=== PATIENT | male | born 1955 | race Caucasian/White ===

== ENCOUNTER → 2016-05-27 | Outpatient (REF) | payer OTHER | END | disposition home or self-care (01) | LOC: M LAB REF 13:11 | PROVIDERS: ATTEND Internal Medicine | DX: E78.00 Pure hypercholesterolemia, unspecified (principal); E78.1 Pure hyperglyceridemia ==

== ENCOUNTER → 2017-07-18 | Outpatient (REF) | payer OTHER ==
[2017-07-18 13:15] LABS: FREE T3 2.5 PG/ML (2.2-4.0)
== END ==
LOC: M LAB REF 11:59
DX: E03.9 Hypothyroidism, unspecified (principal)

== ENCOUNTER 2018-06-05 08:31 | Day surgery (SDC) | payer BC, OTHER ==
[~2018-06-05] VITALS: Ht 167.6 cm; Wt 112.5 kg
[~2018-06-05 08:31] MED LIST: ALBU83IN NEB; ATOR40TA75 PO; FURO40TA2 PO; LEVO200T4 PO; METF10004 PO; NS 1,000 ML IV ONE; PRAM1TAB7 PO; TRAD5TAB PO
[2018-06-05] MEDS ORDERED: PROPOFOL 200 MG/20 ML VIAL As Ordered ONE (10:54)
--- NOTE | 2018-06-05 11:21 | ROOR ---
Patient Name: Александр Mercer Procedure Date: 06/05/2018 10:49 AM Date of : 1955 Age: 62 Room: [facility] Gender: Male Note Status: Finalized Procedure: Colonoscopy Indications: High risk colon cancer surveillance: Personal history of non-advanced adenoma, Last colonoscopy: March 2010 Providers: Lenin Watson MD Referring MD: BRANDI MANDUJANO JR, MD Requesting Provider: Medicines: Monitored Anesthesia Care Complications: No immediate complications. Procedure: Pre-Anesthesia Assessment: - Prior to the procedure, a History and Physical was performed, and patient medications and allergies were reviewed. The patient is competent. The risks and benefits of the procedure and the sedation options and risks were discussed with the patient. All questions were answered and informed consent was obtained. Patient identification and proposed procedure were verified by the physician, the nurse and the anesthesiologist in the procedure room. Mental Status Examination: alert and oriented. CV Examination: regular rate and rhythm. Prophylactic Antibiotics: The patient does not require prophylactic antibiotics. Prior Anticoagulants: The patient has taken no previous anticoagulant or antiplatelet agents. ASA Grade Assessment: III - A patient with severe systemic disease. After reviewing the risks and benefits, the patient was deemed in satisfactory condition to undergo the procedure. The anesthesia plan was to use monitored anesthesia care (MAC). Immediately prior to administration of medications, the patient was re-assessed for adequacy to receive sedatives. The heart rate, respiratory rate, oxygen saturations, blood pressure, adequacy of pulmonary ventilation, and response to care were monitored throughout the procedure. The physical status of the patient was re-assessed after the procedure. The was introduced through the anus and advanced to the ileocecal valve. The colonoscopy was performed without difficulty. The patient tolerated the procedure well. The quality of the bowel preparation was excellent. Findings: Skin tags were found on perianal exam. Scattered small-mouthed diverticula were found in the sigmoid colon and descending colon. A 4 mm polyp was found at 80 cm proximal to the anus. The polyp was sessile. The polyp was removed with a cold snare. Resection and retrieval were complete. Estimated blood loss was minimal. Impression: - Perianal skin tags found on perianal exam. - Diverticulosis in the sigmoid colon and in the descending colon. - One 4 mm polyp at 80 cm proximal to the anus, removed with a cold snare. Resected and retrieved. Recommendation: - Await pathology results. - Discharge patient to home. - Resume previous diet. - Continue present medications. - If the pathology report reveals adenomatous tissue, then repeat the colonoscopy for surveillance in 3 - 5 years. Lenin Watson MD Lenin Watson MD 06/05/2018 11:21:36 AM This report has been signed electronically. Number of Addenda: 0 Note Initiated On: 06/05/2018 10:49 AM Estimated Blood Loss: Estimated blood loss was minimal.
[2018-06-05 11:35] VITALS: BP 144/84
== END 2018-06-05 12:10 | disposition home or self-care (01) ==
LOC: M OPP 08:31
PROVIDERS: ATTEND Surgery
DX: Z12.11 Encounter for screening for malignant neoplasm of colon (principal); Z86.010 Personal history of colon polyps; D12.4 Benign neoplasm of descending colon; K57.90 Diverticulosis of intestine, part unspecified, without perforation or abscess without bleeding; K64.4 Residual hemorrhoidal skin tags; E78.5 Hyperlipidemia, unspecified; R60.0 Localized edema; E03.9 Hypothyroidism, unspecified; E11.9 Type 2 diabetes mellitus without complications; J45.909 Unspecified asthma, uncomplicated; J44.9 Chronic obstructive pulmonary disease, unspecified; R06.83 Snoring; G47.30 Sleep apnea, unspecified; E66.9 Obesity, unspecified; N18.9 Chronic kidney disease, unspecified; G25.81 Restless legs syndrome; Z87.891 Personal history of nicotine dependence; Z88.8 Allergy status to other drugs, medicaments and biological substances; Z88.0 Allergy status to penicillin; Z79.899 Other long term (current) drug therapy; Z79.84 Long term (current) use of oral hypoglycemic drugs

== ENCOUNTER → 2018-11-12 | Outpatient (REF) | payer MEDICARE, OTHER ==
[~2018-11-12] MED LIST changes: -NS 1,000 ML IV ONE
== END ==
LOC: M LAB REF 16:49
PROVIDERS: ATTEND Internal Medicine
DX: R22.1 Localized swelling, mass and lump, neck (principal)

== ENCOUNTER → 2019-03-23 | Outpatient (CLI) | payer MEDICARE, OTHER ==
--- NOTE | 2019-03-23 11:45 | REP ---
Right rib series four views: There is no rib fracture or other rib abnormality. PA chest: There are no comparisons. There is no pneumothorax, hemothorax or pulmonary contusion. There is a parenchymal scar in the left costophrenic angle with slight tenting of the adjacent lateral pleura. Cardiac size is upper normal. The iker, mediastinum, skeletal structures are unremarkable. Impression: Essentially negative PA chest except for parenchymal scarring inferiorly in the left lung. Electronically Signed by Levi Ervin MD 03/23/2019 11:37 A
== END ==
LOC: M WUC 09:20
PROVIDERS: ATTEND Physician Assistant
DX: R07.1 Chest pain on breathing (principal)

== ENCOUNTER → 2019-04-27 | Outpatient (REF) | payer MEDICARE, BC, OTHER | LOC: M LAB REF 14:08 | PROVIDERS: ATTEND Physician Assistant | DX: R30.0 Dysuria (principal); M54.5 Low back pain ==

== ENCOUNTER 2019-05-15 07:22 | Emergency (ER) | payer MEDICARE, BC, OTHER ==
[~2019-05-15] VITALS: Ht 167.6 cm; Wt 118.2 kg
[2019-05-15] MEDS ORDERED: MELA5SUB SL (07:30)
[2019-05-15 08:32] LABS: BASO % 0.3 % (0.0-1.0); EOS % 0.2 % (0.0-3.0); HEMOGLOBIN 11.3 g/dl (13.5-17.5); LYMPH # 0.6 10^3/uL (1.5-5.0); LYMPH % 6.3 % (24.0-44.0); MEAN CORPUSCULAR HGB CONC 31.4 g/dl (32.0-36.5); MEAN CORPUSCULAR VOLUME 98.9 fl (80.0-96.0); MONO # 0.9 10^3/uL (0.0-0.8); MONO % 9.2 % (0.0-5.0); NEUTROPHILS # 8.2 10^3/uL (1.5-8.5); NEUTROPHILS % 83.6 % (36.0-66.0); PLATELET COUNT, AUTOMATED 108 10^3/uL (150-450); RED BLOOD COUNT 3.64 10^6/uL (4.30-6.10); WHITE BLOOD COUNT 9.8 10^3/uL (4.0-10.0)
[2019-05-15 08:51] LABS: BLOOD UREA NITROGEN 16 MG/DL (7-18); CALCIUM LEVEL 8.1 MG/DL (8.8-10.2); CARBON DIOXIDE LEVEL 22 MEQ/L (21-32); CHLORIDE LEVEL 106 MEQ/L (98-107); CREATININE FOR GFR 1.19 MG/DL (0.70-1.30); GLOMERULAR FILTRATION RATE > 60.0 (>49); GLUCOSE, FASTING 190 MG/DL (70-100); POTASSIUM SERUM 4.1 MEQ/L (3.5-5.1); SODIUM LEVEL 138 MEQ/L (136-145)
[2019-05-15] MEDS ORDERED: SULF1TAB93 PO (09:10)
[2019-05-15] MEDS ORDERED: PHENAZOPYRIDINE 100 MG TAB PO ONE (09:15)
[2019-05-15] MEDS ORDERED: BACTRIM 160MG/800MG DS TAB PO ONE (09:15)
[2019-05-15 09:23] VITALS: BP 168/75
[2019-05-16] MEDS ORDERED: PHEN-501 PO (14:46)
[2019-05-16] MEDS ORDERED: ACET-683 PO (14:52)
[2019-05-16] MEDS ORDERED: METF-723 PO (18:06)
[2019-05-16] MEDS ORDERED: MELA10CA PO (18:06)
[2019-05-16] MEDS ORDERED: BACT800T5 PO (18:06)
[2019-05-16] MEDS ORDERED: ALBU83IN INH (18:07)
== END 2019-05-15 09:24 | disposition home or self-care (01) ==
LOC: M ED 07:22
DX: N39.0 Urinary tract infection, site not specified (principal); D64.9 Anemia, unspecified; D69.6 Thrombocytopenia, unspecified; E11.9 Type 2 diabetes mellitus without complications; E03.9 Hypothyroidism, unspecified; G47.33 Obstructive sleep apnea (adult) (pediatric); Z79.899 Other long term (current) drug therapy; Z79.890 Hormone replacement therapy; Z79.84 Long term (current) use of oral hypoglycemic drugs; Z88.0 Allergy status to penicillin; Z88.8 Allergy status to other drugs, medicaments and biological substances

== ENCOUNTER 2019-05-16 14:37 | Inpatient (IN) | payer MEDICARE, BC, OTHER ==
[~2019-05-16] VITALS: Ht 162.6 cm; Wt 115.8 kg
[~2019-05-16 14:37] MED LIST changes: +MELA5SUB SL; +SULF1TAB93 PO
[2019-05-16] MEDS ORDERED: PHEN-501 PO (14:46)
[2019-05-16] MEDS ORDERED: ACET-683 PO (14:52)
[2019-05-16 15:34] LABS: BASO % 0.1 % (0.0-1.0); HEMOGLOBIN 10.8 g/dl (13.5-17.5); LYMPH # 0.4 10^3/uL (1.5-5.0); LYMPH % 4.5 % (24.0-44.0); MEAN CORPUSCULAR HEMOGLOBIN 32.5 pg (27.0-33.0); MEAN CORPUSCULAR HGB CONC 32.7 g/dl (32.0-36.5); MEAN CORPUSCULAR VOLUME 99.4 fl (80.0-96.0); MONO # 0.6 10^3/uL (0.0-0.8); MONO % 7.3 % (0.0-5.0); NEUTROPHILS # 7.6 10^3/uL (1.5-8.5); NEUTROPHILS % 87.5 % (36.0-66.0); PLATELET COUNT, AUTOMATED 104 10^3/uL (150-450); RED BLOOD COUNT 3.32 10^6/uL (4.30-6.10); WHITE BLOOD COUNT 8.7 10^3/uL (4.0-10.0)
[2019-05-16 15:50] LABS: ALBUMIN 3.2 GM/DL (3.2-5.2); BILIRUBIN,TOTAL 1.1 MG/DL (0.2-1.0); CALCIUM LEVEL 8.2 MG/DL (8.8-10.2); CREATININE FOR GFR 1.77 MG/DL (0.70-1.30); GLOMERULAR FILTRATION RATE 41.3 (>49); POTASSIUM SERUM 3.9 MEQ/L (3.5-5.1); TOTAL PROTEIN 6.9 GM/DL (6.4-8.2)
[2019-05-16] MEDS ORDERED: cefTRIAXone SOD 1 GM in D5W MINI-BAG PLUS 50 ML IV ONE (16:00)
[2019-05-16] MEDS ORDERED: IBUPROFEN 800 MG TAB PO ONE (16:00)
[2019-05-16] MEDS ORDERED: NS 1,000 ML IV ONE (16:00)
--- NOTE | 2019-05-16 16:17 | REP ---
Clinical: Left flank pain. Technique: Axial noncontrast images from the lung bases to the pubic symphysis with coronal and sagittal re-formations. Findings: Moderate acute left-sided obstructive uropathy with hydroureteronephrosis, perinephric and periureteral stranding and small amount of perinephric fluid secondary to a 7 mm calculus obstructing the mid/distal ureter (image 110 - 111). Multiple intrarenal calculi are also identified measuring up to 9 mm along with presumed renal cysts. The right kidney demonstrates mild perinephric stranding which may be chronic and hypodensity suggesting cyst without hydronephrosis or nephrolithiasis. Bladder is under distended. Liver, spleen, pancreas, and bilateral adrenal glands are normal. Evidence of prior cholecystectomy. The enteric system is without obstruction or acute inflammatory process. Pelvis demonstrates under distended bladder and mild prostatomegaly. No ascites. No free air. No significant adenopathy. Musculoskeletal structures demonstrate degenerative changes. Lung bases demonstrate minimal left basilar atelectasis. Impression: 1. Moderate acute left-sided obstructive uropathy with a 7 mm obstructing calculus in the mid/distal ureter. Left kidney also demonstrates multiple cysts and intrarenal calculi up to 9 mm. 2. Right kidney is relatively normal. 3. Mild prostatomegaly. 4. Left basilar atelectasis. Electronically Signed by Medardo Feng MD 05/16/2019 04:09 P
--- NOTE | 2019-05-16 16:18 | REP ---
Single view chest: 05/16/2019. Indication: Dyspnea. Comparison: 01/16/2007. Findings: Poor inspiratory result is noted. The cardiac silhouette is borderline enlarged. Left lower lobe discoid atelectasis is present. There is no evidence of pleural effusion or pneumothorax. Impression: No evidence of acute cardiopulmonary process. Electronically Signed by Jarocho Collazo DO 05/16/2019 04:09 P
[2019-05-16] MEDS ORDERED: CONRAY-60 60% 50ML VIAL (Q9961) As Ordered ONE (17:59)
[2019-05-16] MEDS ORDERED: HumaLOG INSULIN (NovoLOG) PER UNIT SC SCH (18:00)
[2019-05-16] MEDS ORDERED: MELA10CA PO (18:06)
[2019-05-16] MEDS ORDERED: METF-723 PO (18:06)
[2019-05-16] MEDS ORDERED: BACT800T5 PO (18:06)
[2019-05-16] MEDS ORDERED: ALBU83IN INH (18:07)
[2019-05-16] MEDS ORDERED: ONDANSETRON 4MG/2ML VIAL (J2405) IV PRN ×2 (18:15→21:30)
[2019-05-16] MEDS ORDERED: MORPHINE 4 MG/ML 1ML VIAL/SYRINGE (J2270) IV PRN (18:15)
--- NOTE | 2019-05-16 18:52 | HPEPDOC ---
[facility] Medical History & Physical Date of Admission May 16, 2019 Date of Service: May 16, 2019 Attending Physician: ALEXY WHALEY MD History and Physical CHIEF COMPLAINT: Fever, chills, back pain HISTORY OF PRESENT ILLNESS: Patient is a 63 year old male who presented to the [facility] ER with complaint of fevers, chills, back pain and lower abdominal pain. He stated that he developed back pain and urinary urgency about 1 week ago. He stated that at the time he did not think much of it as he has a history of kidney stones. As the week progressed he was having increasing urinary urgency as well as increased back pain and abdominal pain. He stated that yesterday he had developed chills and fevers. He stated that he presented to the [facility] ER yesterday where he was diagnosed with a urinary tract infection and sent home with Bactrim. The patient stated that since yesterday his fever and chills has worsened and his back pain and abdominal pain have worsened as well. He currently denies any urinary retention. He does admit to discomfort on urination. He denies any hematuria. He denies any penile discharge. In the ER the patient was found to be febrile with a temperature of 102.0. He was normotensive however throughout his time in the ER he became slightly hypotensive. He has received Normal saline boluses x2. He received a chest x-ray which was negative for any acute cardiopulmonary process. He received an abdominal pelvis CT which demonstrated moderate acute left-sided obstructive uropathy with a 7mm obstructing calculus in the mid/distal ureter. Additionally, the left kidney demonstrated multiple cysts and intrarenal calculi up to 9mm. The patient was seen by Urology with recommendations for surgical stent placement tonight. Hospitalist service was consulted for medical management of the patients pyelonephritis PAST MEDICAL HISTORY: 1. Asthma/COPD 2. Obstructive Sleep Apnea 3. Diabetes Mellitus Type 2 non-insulin dependent 4. Restless leg syndrome 5. Nephrolithiasis 6. Chronic Leg edema 7. Osteoarthritis of Knees 8. Hypothyroidism PAST SURGICAL HISTORY: 1. Bilateral Knee Arthroscopy 2. Right Calve Vein Stripping 3. Cholecystectomy 4. Left foot reconstructive surgery SOCIAL HISTORY: Patient is currently living at home with his . He is a former smoker. He started smoking at the age of 12. He quit smoking November 23 2006. He drinks whiskey about 1 drink per night. He denies any IV or illicit drug use FAMILY HISTORY:His mother and father are . His mother from complications of cigarette smoking. His father had CAD. He has one brother and 6 sisters who are all alive and well. ALLERGIES: Please see below. REVIEW OF SYSTEMS: CONSTITUTIONAL: Admits to fevers, chills. Denies unintentional weight loss or weight gain. Denies night sweats HEENT: Denies cough. Denies dysphagia. Denies sore throat CARDIOVASCULAR: Denies chest pain, pressure. Denies palpitations or feelings of the heart racing RESPIRATORY: Admits to occasional shortness of breath. Denies sputum production. Denies cough. Denies wheezing GASTROINTESTINAL: Admits to lower abdominal pain. Denies nausea or vomiting. Denies diarrhea or constipation GENITOURINARY: Admits to urinary urgency and frequency. Denies urinary retention. Admits to dark urine. Denies hematuria. Admits to left sided flank pain SKIN: Denies rashes or lesions MUSCULOSKELETAL: Admits to left sided flank pain. Denies muscle weaknes NEUROLOGICAL: Denies changes in gait or speech. Denies changes in balance PSYCHIATRIC: Denies history of anxiety or depression ENDOCRINE: Denies heat intolerance or cold intolerance. Admits to diabetes HEMATOLOGIC/LYMPHATIC: Denies easy bruising or bleeding. Denies history of DVT or PE HOME MEDICATIONS: Please see below. PHYSICAL EXAMINATION: VITAL SIGNS: Temperature 101.7, pulse 74, respiratory rate 22, blood pressure 101/58, pulse oximetry 95% on room air. GENERAL APPEARANCE: Patient is awake, alert, and oriented. He does not appear to be in any acute distress. He is lying comfortably in stretcher HEENT: Atraumatic, normocephalic. Eyes are nonicteric. trachea is midline. Upper and lower dentures in place. Mallampati III-IV. Mucous membranes are pink and moist. Bilateral hearing aid device CARDIOVASCULAR: Normal S1, S2. Regular rate and rhythm. No clicks rubs or murmurs LUNGS: Clear vesicular breath sounds bilaterally with good respiratory effort. No wheezes, rhonchi or rales. Prolonged expiratory phase. Symmetric chest expansion ABDOMEN: Obese, soft, nondistended. Slight suprapubic tenderness. no rebound tenderness or guarding. Normoactive bowel sounds throughout MUSCULOSKELETAL: Tenderness of left flank. EXTREMITIES: 1-2 plus pitting edema in bilateral lower extremities. Full and equal pulses in bilateral upper and lower extremities NEUROLOGICAL: No focal neurological deficits PSYCHIATRIC: Mood and affect appear appropriate LABORATORY DATA: See below. IMAGING: Single view chest: 05/16/2019. Indication: Dyspnea. Comparison: 01/16/2007. Findings: Poor inspiratory result is noted. The cardiac silhouette is borderline enlarged. Left lower lobe discoid atelectasis is present. There is no evidence of pleural effusion or pneumothorax. Impression: No evidence of acute cardiopulmonary process. Electronically Signed by Jarocho Collazo DO 05/16/2019 04:09 P Clinical: Left flank pain. Technique: Axial noncontrast images from the lung bases to the pubic symphysis with coronal and sagittal re-formations. Findings: Moderate acute left-sided obstructive uropathy with hydroureteronephrosis, perinephric and periureteral stranding and small amount of perinephric fluid secondary to a 7 mm calculus obstructing the mid/distal ureter (image 110 - 111). Multiple intrarenal calculi are also identified measuring up to 9 mm along with presumed renal cysts. The right kidney demonstrates mild perinephric stranding which may be chronic and hypodensity suggesting cyst without hydronephrosis or nephrolithiasis. Bladder is under distended. Liver, spleen, pancreas, and bilateral adrenal glands are normal. Evidence of prior cholecystectomy. The enteric system is without obstruction or acute inflammatory process. Pelvis demonstrates under distended bladder and mild prostatomegaly. No ascites. No free air. No significant adenopathy. Musculoskeletal structures demonstrate degenerative changes. Lung bases demonstrate minimal left basilar atelectasis. Impression: 1. Moderate acute left-sided obstructive uropathy with a 7 mm obstructing calculus in the mid/distal ureter. Left kidney also demonstrates multiple cysts and intrarenal calculi up to 9 mm. 2. Right kidney is relatively normal. 3. Mild prostatomegaly. 4. Left basilar atelectasis. Electronically Signed by Medardo Feng MD 05/16/2019 04:09 P MICROBIOLOGY: Please see below. ASSESSMENT: Patient is a 63 year old male who presented to the [facility] ER with complaint of urinary urgency, abdominal pain, fevers and chills and found to have pyelonephritis with an obstructing left renal stone . PLAN: 1. Obstructive Uropathy secondary to Renal Calculus -Patient has a 7mm obstructing stone in the left ureter. He has been evaluated by Urology. He is planned to be taken to the OR today for stent placement -Patient will be kept NPO for his procedure -IV fluid hydration -IV morphine for pain control -Zofran for nausea 2. Left sided Pyelonephritis secondary to obstructive uropathy -Patient was on bactrim POP as an outpatient. Will place on Rocephin IV 1gm q24h. -Will monitor Cr. Will likely improve with removal of stone/stenting 3. Acute Kidney Injury 2/2 obstructive nephropathy -Will hold all nephrotoxic medications -IV fluid hydration -Patient will have stenting today. This will likely resolve the DION -Will monitor Cr for improvement 4. Lactic Acidosis -Likely secondary to acute infection and obstructive nephropathy -Patient has received IVF boluses and antibiotics. 5. Bilateral Leg edema -Patient states he has chronic edema. He denies history of CHF. -Lasix is currently on hold due to DION and obstructive uropathy 6. Diabetes Mellitus Type 2 -Holding home diabetes medications. Patient is NPO and is on fingersticks q6h. Sliding scale coverage 7. Restless Leg syndrome -Patient currently takes pramipexole and Rozerem. -Currently holding as patient is NPO. 8. Hypothyroidism -Patient is NPO. Levothyroxine on hold. Will continue tomorrow. 9. DVT prophylaxis -TEDS and sequentials as patient is going to surgery for stent placement -Will start pharmacological DVT prophylaxis tomorrow Vital Signs Vital Signs Date Time Temp Pulse Resp B/P (MAP) Pulse Ox O2 Delivery O2 Flow Rate FiO2 05/16/19 17:45 69 95 05/16/19 17:15 101/58 (72) 05/16/19 16:33 101.7 05/16/19 14:37 22 Room Air Laboratory Data Labs 24H Laboratory Tests 2 05/16/19 15:08: Immature Granulocyte % (Auto) 0.6, Neutrophils (%) (Auto) 87.5H, Lymphocytes (%) (Auto) 4.5L, Monocytes (%) (Auto) 7.3H, Eosinophils (%) (Auto) 0.0, Basophils (%) (Auto) 0.1, Neutrophils # (Auto) 7.6, Lymphocytes # (Auto) 0.4L, Monocytes # (Auto) 0.6, Eosinophils # (Auto) 0.0, Basophils # (Auto) 0.0, Nucleated Red Blood Cells % (auto) 0.2H, Anion Gap 10, Glomerular Filtration Rate 41.3L, Lactic Acid Level 3.0*H, Calcium Level 8.2L, Total Bilirubin 1.1H, Aspartate Amino Transf (AST/SGOT) 13, Alanine Aminotransferase (ALT/SGPT) 17, Alkaline Phosphatase 84, Total Protein 6.9, Albumin 3.2, Albumin/Globulin Ratio 0.86L 05/16/19 15:24: Urine Color DK YELLOW, Urine Appearance CLOUDYH, Urine pH 5.0, Urine Specific [place] 1.019, Urine Protein 2+H, Urine Glucose (UA) NEGATIVE, Urine Ketones NEGATIVE, Urine Blood 3+H, Urine Nitrite NEGATIVE, Urine Bilirubin NEGATIVE, Urine Urobilinogen 2.0H, Urine Leukocyte Esterase 1+H, Urine WBC (Auto) 66H, Urine RBC (Auto) 167H, Urine Hyaline Casts (Auto) 0, Urine Bacteria (Auto) 1+H, Urine Squamous Epithelial Cells 1, Urine Amorphous Sediment SMALLH, Urine Mucus (Auto) SMALL, Urine Sperm (Auto) CBC/BMP Laboratory Tests 05/16/19 15:08 Microbiology Microbiology 05/16/19 Blood Culture, Received Pending 05/16/19 Urine Culture, Received Pending 05/16/19 Blood Culture, Received Pending Home Medications Scheduled Furosemide (Furosemide) 40 Mg Tab, 40 MG PO DAILY Levothyroxine Sodium (Levothyroxine Sodium) 200 Mcg Tab, 200 MCG PO QAM Linagliptin (Tradjenta) 5 Mg Tab, 5 MG PO QHS Melatonin (Melatonin) 10 Mg Capsule, 20 MG PO QHS Metformin HCl (Metformin HCl ER) 500 Mg Tab.er.24h, 1,000 MG PO QHS Phenazopyridine HCl (Phenazopyridine HCl) 200 Mg Tablet, 200 MG PO TID Pramipexole Di-HCl (Pramipexole Dihydrochloride) 1 Mg Tab, 2 MG PO QHS Sulfamethoxazole/Trimethoprim (Bactrim Ds Tablet) 1 Each Tablet, 1 TAB PO BID FOR 7 DAYS, FILLED 05/15/19 Scheduled PRN Acetaminophen (Acetaminophen) 500 Mg Tablet, 500 MG PO Q6H PRN for PAIN Albuterol Sulf (Albuterol Sulfate) 2.5 Mg/3 Ml Vial.neb, 2.5 MG INH Q4H PRN for SHORTNESS OF BREATH Allergies Coded Allergies: Penicillins (Verified Allergy, Unknown, UNKNOWN CHILDHOOD REACTION, 05/16/19) diphenhydramine (Verified Allergy, Unknown, ANAPHYLAXIS, 05/16/19) A-FIB/CHADSVASC A-FIB History Current/History of A-Fib/PAF?: No MIMI PALMER DO May 16, 2019 18:52
[2019-05-16] MEDS ORDERED: IPRATROPIUM 0.5MG/ALBUTEROL 2.5MG INH SOL UD 3ML (DUONEB)(J7620) NEB PRN (19:00)
--- NOTE | 2019-05-16 19:58 | SMCUROLCON ---
Urology Consultation General Date of Consultation 05/16/19 Reason For Consultation This patient is seen for Pyelonephritis. History of Present Illness This is a 63 y/o M w/ a PMH significant for COPD, ROBERT, DM2, kidney stones, an elevated PSA (s/p negative prostate biopsy about 10 years ago), and hypothyroidi sm, presenting to the ER w/ fevers, b/l flank pain, and malaise. He originally came to the ER yesterday and was diagnosed w/ a UTI. He was sent home on abx and despite abx, his symptoms worsened. On CT he was found to have moderate left hydroureteronephrosis and perinephric stranding due to a 7mm obstructing mid left ureteral stone. His Tmax in the ER was 104 and he was noted to be mildly hypotensive w/ systolics in the 90s. His Cr was 1.8 from 1.2 yesterday. He notes that he feels a little better since receiving rocephin and IVF in the ER but he still feels pretty bad. Past Medical History Medical History see HPI Surgical Hstory right leg vein stripping, cholecystectomy, b/l knee surgery Medications Current Medications Current Medications Medications (Trade) Dose Ordered Sig/Delfin Route PRN Reason Start Time Stop Time Status Last Admin Dose Admin Albuterol/ Ipratropium (Duoneb (Ipr 0.5mg/Alb 2.5mg)) 3 ml Q4HP PRN NEB SOB/WHEEZING 05/16/19 19:00 Ceftriaxone Sodium 1 gm/ Dextrose 50 ml @ 100 mls/hr Q24H IV 05/17/19 16:00 Home Med (Med Rec Complete!) ASDIRECTED XX 05/16/19 18:15 05/16/19 18:15 DC Insulin Human Lispro (HumaLOG INSULIN) SEE PROTOCOL TABLE Q6H SC 05/16/19 18:00 Morphine Sulfate (Morphine Sulfate Inj) 3 mg Q3HP PRN IV SEVERE PAIN (PS 8-10) 05/16/19 18:15 Ondansetron HCl (ZOFRAN INJection) 4 mg Q6HP PRN IV NAUSEA OR VOMITING 05/16/19 18:15 Sodium Chloride 1,000 ml @ 150 mls/hr Q6H40M IV 05/16/19 18:15 Allergies Allergies: Coded Allergies: Penicillins (Verified Allergy, Unknown, UNKNOWN CHILDHOOD REACTION, 05/16/19) diphenhydramine (Verified Allergy, Unknown, ANAPHYLAXIS, 05/16/19) Review of Systems General: Reports: Chills Constitutional: Reports: Fever Pulmonary: Denies: Dyspnea, Cough Cardiovascular: Denies Chest Pain, Denies Palpitations Gastrointestinal: Reports: Abdominal Pain Genitourinary: Reports: Frequency; Denies: Dysuria, Retention, Other Symptoms Musculoskeletal: Reports: Back Pain (b/l flank pain) Psych: Reports: Mood Normal Physical Examination General Exam: Alert, Cooperative, No Acute Distress Chest Exam: Normal air movement Heart Exam: Rate Normal Abdomen Exam: Soft, Tenderness (mild LLQ) Skin Exam: Nl turgor and temperature Neuro Exam: Normal Speech Psych Exam: Mental status NL, Mood NL Vital Signs/I&O Vital Signs Date Time Temp Pulse Resp B/P (MAP) Pulse Ox O2 Delivery O2 Flow Rate FiO2 05/16/19 18:30 66 95 05/16/19 17:15 101/58 (72) 05/16/19 16:33 101.7 05/16/19 14:37 22 Room Air Laboratory Data 24H Labs Laboratory Tests 2 05/16/19 15:08: Immature Granulocyte % (Auto) 0.6, Neutrophils (%) (Auto) 87.5H, Lymphocytes (%) (Auto) 4.5L, Monocytes (%) (Auto) 7.3H, Eosinophils (%) (Auto) 0.0, Basophils (%) (Auto) 0.1, Neutrophils # (Auto) 7.6, Lymphocytes # (Auto) 0.4L, Monocytes # (Auto) 0.6, Eosinophils # (Auto) 0.0, Basophils # (Auto) 0.0, Nucleated Red Blood Cells % (auto) 0.2H, Anion Gap 10, Glomerular Filtration Rate 41.3L, Lactic Acid Level 3.0*H, Calcium Level 8.2L, Total Bilirubin 1.1H, Aspartate Amino Transf (AST/SGOT) 13, Alanine Aminotransferase (ALT/SGPT) 17, Alkaline Phosphatase 84, Total Protein 6.9, Albumin 3.2, Albumin/Globulin Ratio 0.86L 05/16/19 15:24: Urine Color DK YELLOW, Urine Appearance CLOUDYH, Urine pH 5.0, Urine Specific [place] 1.019, Urine Protein 2+H, Urine Glucose (UA) NEGATIVE, Urine Ketones NEGATIVE, Urine Blood 3+H, Urine Nitrite NEGATIVE, Urine Bilirubin NEGATIVE, Urine Urobilinogen 2.0H, Urine Leukocyte Esterase 1+H, Urine WBC (Auto) 66H, Urine RBC (Auto) 167H, Urine Hyaline Casts (Auto) 0, Urine Bacteria (Auto) 1+H, Urine Squamous Epithelial Cells 1, Urine Amorphous Sediment SMALLH, Urine Mucus (Auto) SMALL, Urine Sperm (Auto) CBC/BMP Laboratory Tests 05/16/19 15:08 Microbiology Microbiology 05/16/19 Blood Culture, Received Pending 05/16/19 Urine Culture, Received Pending 05/16/19 Blood Culture, Received Pending Assessment This is a 63 y/o M w/ an obstructing 7mm left ureteral stone and left pyelonephritis vs sepsis due to a UTI. I recommend that we take him to the OR this evening for cystoscopy and left ureteral stent placement. Plan - blood and urine cultures obtained in the ED - shaniqua given - informed consent signed for cystoscopy and left ureteral stent placement - NPO until after surgery MELIDA SNELL MD May 16, 2019 19:57
[2019-05-16 20:00] VITALS: BP 132/73
[2019-05-16] MEDS ORDERED: LIDOCAINE 2% 5ML JELLY UROJET As Ordered ONE (20:36)
[2019-05-16] MEDS ORDERED: ONDANSETRON 4MG/2ML VIAL (J2405) As Ordered ONE (20:49)
[2019-05-16] MEDS ORDERED: fentaNYL 100 MCG/2 ML INJECTION (J3010) As Ordered ONE (20:49)
[2019-05-16] MEDS ORDERED: LIDOCAINE 2% INJ 100 MG/5 ML SDV (FOR ANES.) As Ordered ONE (20:49)
[2019-05-16] MEDS ORDERED: MIDAZOLAM INJ 2 MG/2 ML VIAL (J2250) As Ordered ONE (20:49)
[2019-05-16] MEDS ORDERED: PROPOFOL 200 MG/20 ML VIAL As Ordered ONE (20:49)
[2019-05-16] MEDS ORDERED: fentaNYL 100 MCG/2 ML INJECTION (J3010) IV PRN (21:30)
[2019-05-16] MEDS ORDERED: PERCOCET 5MG/325MG TAB PO PRN (21:30)
[2019-05-16] MEDS ORDERED: LR 1,000 ML IV SCH (21:30)
--- NOTE | 2019-05-16 21:39 | RO ---
DATE OF PROCEDURE: 05/16/2019 PREPROCEDURE DIAGNOSIS: Left ureteral stone. POSTPROCEDURE DIAGNOSIS: Left ureteral stone. PROCEDURE: Cystoscopy, left retrograde pyelogram with intraoperative interpretation of images, left ureteral stent placement. SURGEON: Dr. Adán Maldonado INTERACTIVE MEDIA SPECIALIST: None. ANESTHESIA: Monitored anesthesia care (MAC). OPERATIVE INDICATIONS: This is a 63-year-old male who presented with an obstructing left ureteral stone, a urinary tract infection (UTI), and symptoms concerning for either left pyelonephritis or sepsis. He was brought to the operating room today for cystoscopy and left ureteral stent placement. DESCRIPTION OF PROCEDURE: The patient was brought to the operating room and MAC anesthesia administered. Broad-spectrum antibiotics had already been administered in the emergency room. He was then placed in the dorsal lithotomy position and prepped and draped in the usual sterile fashion. A rigid cystoscope was inserted into the urethral meatus and advanced into the bladder. Once inside the bladder, a guidewire was advanced up the left collecting system. Once the wire was advanced up, a 5-Malaysian open-ended ureteral catheter was advanced up the left collecting system. The wire was removed, and then I used the open-ended ureteral catheter to aspirate urine from the left kidney. Of note, the urine did not appear to be very purulent. A retrograde pyelogram was then performed, notable for moderate left hydronephrosis, no extravasation. I then advanced a wire back up the left collecting system and removed the ureteral catheter. I then utilized the wire to advance a 7-Malaysian x 22-32 cm JJ ureteral stent up into the left collecting system. The wire was removed, and there were adequate curls of the stent in the left renal pelvis and in the bladder. At this point, a 16-Malaysian Cantor catheter was inserted into the bladder, and the balloon was filled with 10 mL of sterile water. The catheter was connected to gravity drainage, and this marked the conclusion of the procedure. The patient was then taken out of the dorsal lithotomy position, awakened from anesthesia and transported to the recovery room in stable condition. Estimated blood loss: 0 mL. Complications: None. Specimens: Urine from left kidney for culture. PLAN: The patient will be kept in the hospital on broad-spectrum antibiotics until his cultures return. His catheter can likely be removed tomorrow. He will ultimately be brought back to the operating room at some point once his infection has cleared to treat his ureteral stone. PATRICIA
[2019-05-16 22:15] VITALS: BP 122/70
[2019-05-16] MEDS: NS 1,000 ML IV SCH (22:18)
[2019-05-16] MEDS ORDERED: GLUCAGON FOR INJ 1 MG VIAL (J1610) SC PRN (23:00)
[2019-05-16] MEDS ORDERED: DEXTROSE 50% 50 ML SYRINGE IV PRN (23:00)
[2019-05-16] MEDS ORDERED: GLUCOSE 4 GM CHEW TABLET PO PRN (23:00)
[2019-05-16 23:59] VITALS: BP 118/64
[2019-05-17] MEDS: ACETAMINOPHEN TAB 650MG DOSE (2X325MG) PO PRN ×2 (00:20→10:45)
[2019-05-17 01:00] VITALS: BP 120/63
[2019-05-17 04:00] VITALS: BP 123/71
[2019-05-17] MEDS: NS 1,000 ML IV SCH ×2 (04:49→10:45)
[2019-05-17 06:02] LABS: HEMATOCRIT 27.9 % (42.0-52.0); MEAN CORPUSCULAR HEMOGLOBIN 31.6 pg (27.0-33.0); MEAN CORPUSCULAR HGB CONC 31.2 g/dl (32.0-36.5); MEAN CORPUSCULAR VOLUME 101.5 fl (80.0-96.0); RED BLOOD COUNT 2.75 10^6/uL (4.30-6.10); WHITE BLOOD COUNT 5.4 10^3/uL (4.0-10.0)
[2019-05-17 06:11] LABS: HEMOGLOBIN 8.7 g/dl (13.5-17.5); PLATELET COUNT, AUTOMATED 95 10^3/uL (150-450)
[2019-05-17 06:13] LABS: CALCIUM LEVEL 7.7 MG/DL (8.8-10.2); CREATININE FOR GFR 1.35 MG/DL (0.70-1.30); GLOMERULAR FILTRATION RATE 56.5 (>49); POTASSIUM SERUM 3.7 MEQ/L (3.5-5.1)
--- NOTE | 2019-05-17 07:43 | IPNPDOC ---
Subjective Review oF Systems Chief Complaint The patient is a 63-year-old male admitted with a reason for visit of Pyelonephritis. Events since Last Encounter No acute events o/n. Patient notes that he feels much better this morning. He has no flank pain. No n/v. No f/c/ns. Objective Physical Examination General Exam: Alert, Cooperative, No Acute Distress ABDOMEN EXAM: Soft; No: Tenderness Skin Exam: Nl turgor and temperature Neuro Exam: Normal Speech Psych Exam: Mental status NL, Mood NL Other physical findings no CVAT; catheter draining clear urine Vital Signs/I&O Vital Signs Date Time Temp Pulse Resp B/P (MAP) Pulse Ox O2 Delivery O2 Flow Rate FiO2 05/17/19 04:00 97.9 62 16 123/71 (88) 98 Room Air 05/16/19 21:57 2 I&O- Last 24 Hours up to 6 AM 05/17/19 06:00 Intake Total 3592 ml Output Total 450 ml Balance 3142 ml Laboratory Data Labs 24H Laboratory Tests 2 05/16/19 15:08: Immature Granulocyte % (Auto) 0.6, Neutrophils (%) (Auto) 87.5H, Lymphocytes (%) (Auto) 4.5L, Monocytes (%) (Auto) 7.3H, Eosinophils (%) (Auto) 0.0, Basophils (%) (Auto) 0.1, Neutrophils # (Auto) 7.6, Lymphocytes # (Auto) 0.4L, Monocytes # (Auto) 0.6, Eosinophils # (Auto) 0.0, Basophils # (Auto) 0.0, Nucleated Red Blood Cells % (auto) 0.2H, Anion Gap 10, Glomerular Filtration Rate 41.3L, Lactic Acid Level 3.0*H, Calcium Level 8.2L, Total Bilirubin 1.1H, Aspartate Amino Transf (AST/SGOT) 13, Alanine Aminotransferase (ALT/SGPT) 17, Alkaline Phosphatase 84, Total Protein 6.9, Albumin 3.2, Albumin/Globulin Ratio 0.86L 05/16/19 15:24: Urine Color DK YELLOW, Urine Appearance CLOUDYH, Urine pH 5.0, Urine Specific [place] 1.019, Urine Protein 2+H, Urine Glucose (UA) NEGATIVE, Urine Ketones NEGATIVE, Urine Blood 3+H, Urine Nitrite NEGATIVE, Urine Bilirubin NEGATIVE, Urine Urobilinogen 2.0H, Urine Leukocyte Esterase 1+H, Urine WBC (Auto) 66H, Urine RBC (Auto) 167H, Urine Hyaline Casts (Auto) 0, Urine Bacteria (Auto) 1+H, Urine Squamous Epithelial Cells 1, Urine Amorphous Sediment SMALLH, Urine Mucus (Auto) SMALL, Urine Sperm (Auto) 05/16/19 22:14: Bedside Glucose (Misc Panel) 150H 05/16/19 22:20: Lactic Acid Followup at 4 Hours 1.5 05/17/19 05:41: Nucleated Red Blood Cells % (auto) 0.0, Immature Platelet Fraction 1.2, Anion Gap 8, Glomerular Filtration Rate 56.5, Calcium Level 7.7L CBC/BMP Laboratory Tests 05/16/19 15:08 05/17/19 05:41 FSBS Laboratory Tests Test 05/16/19 22:14 Range/Units Bedside Glucose (Misc Panel) 150 80-115 MG/DL Microbiology Microbiology 05/16/19 Urine Culture, Received Pending 05/16/19 Blood Culture, Received Pending 05/16/19 Urine Culture, Received Pending 05/16/19 Blood Culture, Received Pending Assessment/Plan Date Seen The patient was seen on 05/17/19. Patient Summary This is a 63 y/o M w/ an obstructing 7mm left ureteral stone and left deandre lonephritis vs sepsis due to a UTI, POD1 s/p cysto w/ left ureteral stent placement. He feels much better this am. He is afebrile. His Cr is trending down, now 1.4 from 1.8 yesterday. Plan/VTE VTE Prophylaxis Ordered?: Yes VTE Exclusion Mechanical Proph: N/A:VTE Prophy Ordered Plan/Urinary Catheter Urinary Catheter: D/C Cantor Plan - d/c Cantor - cont broad spectrum abx - f/u culture results - patient will need f/u outpatient once he recovers from this to arrange surgery to remove his stone - will have my office schedule this MELIDA SNELL MD May 17, 2019 07:43
[2019-05-17 08:00] VITALS: BP 134/66
[2019-05-17] MEDS: HumaLOG INSULIN (NovoLOG) PER UNIT SC SCH ×2 (08:18→13:00)
--- NOTE | 2019-05-17 08:48 | REP ---
Retrograde pyelogram: Two views. History: Left stent placement. 29 seconds of fluoroscopy time is reported. Findings: A sequence of two last image hold fluoroscopically obtained spot radiographs of the abdomen document left ureteral cannulation, contrast injection, and stent placement. Electronically Signed by Micah Lowe MD 05/17/2019 09:00 A
[2019-05-17] MEDS ORDERED: CEFDINIR 300 MG CAP (OMNICEF) PO SCH (09:00)
[2019-05-17] MEDS ORDERED: CEFD300CAP PO (09:43)
[2019-05-17 12:00] VITALS: BP 117/59
[2019-05-17 12:48] LABS: BLOOD UREA NITROGEN 17 MG/DL (7-18); CALCIUM LEVEL 7.4 MG/DL (8.8-10.2); CARBON DIOXIDE LEVEL 25 MEQ/L (21-32); CHLORIDE LEVEL 107 MEQ/L (98-107); CREATININE FOR GFR 1.17 MG/DL (0.70-1.30); GLOMERULAR FILTRATION RATE > 60.0 (>49); GLUCOSE, FASTING 174 MG/DL (70-100); POTASSIUM SERUM 4.4 MEQ/L (3.5-5.1); SODIUM LEVEL 138 MEQ/L (136-145)
[2019-05-17] MEDS ORDERED: cefTRIAXone SOD 1 GM in D5W MINI-BAG PLUS 50 ML IV SCH (16:00)
--- NOTE | 2019-05-17 16:10 | DS.PDOC ---
Discharge Summary General Date of Admission May 16, 2019 at 17:51 Date of Discharge 05/17/2019 Attending Physician: DAYANNA MELGOZA MD Specialist/Consultants Involve: MELIDA SNELL MD Discharge Summary PROCEDURES PERFORMED DURING STAY: Cystoscopy, left retrograde pyelogram with intraoperative interpretation of image, left ureteral stent placement ADMITTING DIAGNOSES: 1. Obstructive Uropathy 2/2 Left ureteral stone DISCHARGE DIAGNOSES: 1. Obstructive Uropathy 2/2 Left ureteral stone COMPLICATIONS/CHIEF COMPLAINT: Pyelonephritis. HISTORY OF PRESENT ILLNESS: Patient is a 63 year old male who presented to the [facility] ER with complaint of fevers, chills, back pain and lower abdominal pain. He stated that he developed back pain and urinary urgency about 1 week ago. He stated that at the time he did not think much of it as he has a history of kidney stones. As the week progressed he was having increasing urinary urgency as well as increased back pain and abdominal pain. He stated that yesterday he had developed chills and fevers. He stated that he presented to the [facility] ER yesterday where he was diagnosed with a urinary tract infection and sent home with Bactrim. The patient stated that since yesterday his fever and chills has worsened and his back pain and abdominal pain have worsened as well. He denied any urinary retention. He did admit to discomfort on urination. He denied any hematuria. He denied any penile discharge. In the ER the patient was found to be febrile with a temperature of 102.0. He was normotensive however throughout his time in the ER he became slightly hypotensive. He had received Normal saline boluses x2. He received a chest x-ray which was negative for any acute cardiopulmonary process. He received an abdominal pelvis CT which demonstrated moderate acute left-sided obstructive uropathy with a 7mm obstructing calculus in the mid/distal ureter. Additionally, the left kidney demonstrated multiple cysts and intrarenal calculi up to 9mm. The patient was seen by Urology and subsequently taken for ureteral stent mitch cement. After stent placement the patients renal function improved. He remained afebrile and stated that his pain resolved. The patient had received IV rocephin and was transitioned to PO Cefdinir. Patient was discharged with oral antibiotics for 14 days with follow-up with Dr. Snell of Urology and PCP in 7-10 days DISCHARGE MEDICATIONS: Please see below. ALLERGIES: Please see below. PHYSICAL EXAMINATION ON DISCHARGE: VITAL SIGNS: Please see below. GENERAL: Awake, alert, and oriented. Appears in no acute distress. Lying in bed comfortably HEENT: Atraumatic, normocephalic. eyes are nonicteric. Trachea is midline. Bilateral hearing aid devices in place NECK: No palpable cervical, axillary, or supraclavicular lymphadenopathy CARDIOVASCULAR EXAMINATION: Normal S1, S2. Regular rate and rhythm. No clicks rubs or murmurs RESPIRATORY EXAMINATION: Clear vesicular breath sounds bilaterally with good respiratory effort. No wheezes, rhonchi or rales ABDOMINAL EXAMINATION: Soft, obese. Nondistended. Nontender. no rebound tenderness or guarding. Normoactive bowel sounds throughout EXTREMITIES: Trace edema. Full and equal pulses in bilateral upper and lower extremities SKIN: No rashes or lesions NEUROLOGICAL EXAMINATION: No focal neurological deficits PSYCHIATRIC EXAMINATION: Mood and affect appear appropriate LABORATORY DATA: Please see below. IMAGING: Single view chest: 05/16/2019. Indication: Dyspnea. Comparison: 01/16/2007. Findings: Poor inspiratory result is noted. The cardiac silhouette is borderline enlarged. Left lower lobe discoid atelectasis is present. There is no evidence of pleural effusion or pneumothorax. Impression: No evidence of acute cardiopulmonary process. Electronically Signed by Jarocho Collazo DO 05/16/2019 04:09 P Clinical: Left flank pain. Technique: Axial noncontrast images from the lung bases to the pubic symphysis with coronal and sagittal re-formations. Findings: Moderate acute left-sided obstructive uropathy with hydroureteronephrosis, perinephric and periureteral stranding and small amount of perinephric fluid secondary to a 7 mm calculus obstructing the mid/distal ureter (image 110 - 111). Multiple intrarenal calculi are also identified measuring up to 9 mm along with presumed renal cysts. The right kidney demonstrates mild perinephric stranding which may be chronic and hypodensity suggesting cyst without hydronephrosis or nephrolithiasis. Bladder is under distended. Liver, spleen, pancreas, and bilateral adrenal glands are normal. Evidence of prior cholecystectomy. The enteric system is without obstruction or acute inflammatory process. Pelvis demonstrates under distended bladder and mild prostatomegaly. No ascites. No free air. No significant adenopathy. Musculoskeletal structures demonstrate degenerative changes. Lung bases demonstrate minimal left basilar atelectasis. Impression: 1. Moderate acute left-sided obstructive uropathy with a 7 mm obstructing calculus in the mid/distal ureter. Left kidney also demonstrates multiple cysts and intrarenal calculi up to 9 mm. 2. Right kidney is relatively normal. 3. Mild prostatomegaly. 4. Left basilar atelectasis. Electronically Signed by Medardo Feng MD 05/16/2019 04:09 P Retrograde pyelogram: Two views. History: Left stent placement. 29 seconds of fluoroscopy time is reported. Findings: A sequence of two last image hold fluoroscopically obtained spot radiographs of the abdomen document left ureteral cannulation, contrast injection, and stent placement. Electronically Signed by Micah Lowe MD 05/17/2019 09:00 A PROGNOSIS: Good ACTIVITY: [As tolerated]. DIET: As tolerated DISCHARGE PLAN: Patient is to be discharged home with follow-up with urology for culture results. He will be continued on Cefdinir 300mg BID for 14 days. Patient will need to have stone removal scheduled through Urology office. He is to follow-up with his PCP in 7-10 days - return to the ER if you experience any problems DISPOSITION: Home DISCHARGE CONDITION: [Stable]. TIME SPENT ON DISCHARGE: Greater than 35 minutes. Vital Signs/I&Os Vital Signs Date Time Temp Pulse Resp B/P (MAP) Pulse Ox O2 Delivery O2 Flow Rate FiO2 05/17/19 08:00 97.4 63 16 134/66 (88) 98 Room Air 05/16/19 21:57 2 I&O- Last 24 Hours up to 6 AM 05/17/19 06:00 Intake Total 3592 ml Output Total 450 ml Balance 3142 ml Laboratory Data Labs 24H Laboratory Tests 2 05/16/19 15:08: Immature Granulocyte % (Auto) 0.6, Neutrophils (%) (Auto) 87.5H, Lymphocytes (%) (Auto) 4.5L, Monocytes (%) (Auto) 7.3H, Eosinophils (%) (Auto) 0.0, Basophils (%) (Auto) 0.1, Neutrophils # (Auto) 7.6, Lymphocytes # (Auto) 0.4L, Monocytes # (Auto) 0.6, Eosinophils # (Auto) 0.0, Basophils # (Auto) 0.0, Nucleated Red Blood Cells % (auto) 0.2H, Anion Gap 10, Glomerular Filtration Rate 41.3L, Lactic Acid Level 3.0*H, Calcium Level 8.2L, Total Bilirubin 1.1H, Aspartate Amino Transf (AST/SGOT) 13, Alanine Aminotransferase (ALT/SGPT) 17, Alkaline Phosphatase 84, Total Protein 6.9, Albumin 3.2, Albumin/Globulin Ratio 0.86L 05/16/19 15:24: Urine Color DK YELLOW, Urine Appearance CLOUDYH, Urine pH 5.0, Urine Specific [place] 1.019, Urine Protein 2+H, Urine Glucose (UA) NEGATIVE, Urine Ketones NEGATIVE, Urine Blood 3+H, Urine Nitrite NEGATIVE, Urine Bilirubin NEGATIVE, Urine Urobilinogen 2.0H, Urine Leukocyte Esterase 1+H, Urine WBC (Auto) 66H, Urine RBC (Auto) 167H, Urine Hyaline Casts (Auto) 0, Urine Bacteria (Auto) 1+H, Urine Squamous Epithelial Cells 1, Urine Amorphous Sediment SMALLH, Urine Mucus (Auto) SMALL, Urine Sperm (Auto) 05/16/19 22:14: Bedside Glucose (Misc Panel) 150H 05/16/19 22:20: Lactic Acid Followup at 4 Hours 1.5 05/17/19 05:41: Nucleated Red Blood Cells % (auto) 0.0, Immature Platelet Fraction 1.2, Anion Gap 8, Glomerular Filtration Rate 56.5, Calcium Level 7.7L CBC/BMP Laboratory Tests 05/16/19 15:08 05/17/19 05:41 FSBS Laboratory Tests Test 05/16/19 22:14 Range/Units Bedside Glucose (Misc Panel) 150 80-115 MG/DL Microbiology Microbiology 05/16/19 Urine Culture, Received Pending 05/16/19 Blood Culture, Received Pending 05/16/19 Urine Culture, Received Pending 05/16/19 Blood Culture, Received Pending Discharge Medications Scheduled Cefdinir (Cefdinir) 300 Mg Capsule, 300 MG PO BID Furosemide (Furosemide) 40 Mg Tab, 40 MG PO DAILY, (Reported) Levothyroxine Sodium (Levothyroxine Sodium) 200 Mcg Tab, 200 MCG PO QAM, (Reported) Linagliptin (Tradjenta) 5 Mg Tab, 5 MG PO QHS, (Reported) Melatonin (Melatonin) 10 Mg Capsule, 20 MG PO QHS, (Reported) Metformin HCl (Metformin HCl ER) 500 Mg Tab.er.24h, 1,000 MG PO QHS, (Reported) Pramipexole Di-HCl (Pramipexole Dihydrochloride) 1 Mg Tab, 2 MG PO QHS, (Reported) Scheduled PRN Acetaminophen (Acetaminophen) 500 Mg Tablet, 500 MG PO Q6H PRN for PAIN, (Reported) Albuterol Sulf (Albuterol Sulfate) 2.5 Mg/3 Ml Vial.neb, 2.5 MG INH Q4H PRN for SHORTNESS OF BREATH, (Reported) Allergies Coded Allergies: Penicillins (Verified Allergy, Unknown, UNKNOWN CHILDHOOD REACTION, 05/16/19) diphenhydramine (Verified Allergy, Unknown, ANAPHYLAXIS, 05/16/19) GME ATTESTATION GME ATTESTATION My faculty preceptor for this patient encounter was physically present during the encounter and was fully available. All aspects of the patient interview, examination, medical decision making process, and medical care plan development were reviewed and approved by the faculty preceptor. The faculty preceptor is aware and concurs with the plan as stated in the body of this note and will attest to such by his/her cosignature. ATTENDING NOTE I, Dayanna Melgoza, have independently examined this patient and performed my own physical exam, as well as reviewed the documentation and edited where necessary. I have discussed in detail with the resident / student the findings and plan of treatment as documented by the resident / student and edited their note. I agree with their findings and treatment plan and have edited their documentation. I will continue to follow the patient during this hospital stay. Time spent on discharge 35 minutes MIMI PALMER DO May 17, 2019 11:47 DAYANNA MELGOZA MD May 17, 2019 16:37
[2019-05-17] MEDS ORDERED: HumaLOG INSULIN (NovoLOG) PER UNIT SC SCH (21:00)
== END 2019-05-17 17:45 | disposition home or self-care (01) | DRG 854 ==
LOC: M ED 14:37 → M ED INP 17:51 → ENRESERV 18:11 → M PCU 18:58
PROVIDERS: ADMIT Internal Medicine; ATTEND Internal Medicine
PROC: 0T778DZ Dilation of Left Ureter with Intraluminal Device, Via Natural or Artificial Opening Endoscopic (ICD-10-PCS; principal; 2019-05-16 18:00)
DX: A41.9 Sepsis, unspecified organism (principal); N20.1 Calculus of ureter; E87.2 Acidosis; N39.0 Urinary tract infection, site not specified; N17.9 Acute kidney failure, unspecified; N13.6 Pyonephrosis; R39.15 Urgency of urination; N28.1 Cyst of kidney, acquired; J44.9 Chronic obstructive pulmonary disease, unspecified; G47.33 Obstructive sleep apnea (adult) (pediatric); E11.9 Type 2 diabetes mellitus without complications; G25.81 Restless legs syndrome; N20.0 Calculus of kidney; E03.9 Hypothyroidism, unspecified; Z96.651 Presence of right artificial knee joint; Z96.652 Presence of left artificial knee joint; Z90.49 Acquired absence of other specified parts of digestive tract; Z79.84 Long term (current) use of oral hypoglycemic drugs; Z79.899 Other long term (current) drug therapy; Z88.0 Allergy status to penicillin; Z88.8 Allergy status to other drugs, medicaments and biological substances

== ENCOUNTER → 2019-06-11 | Outpatient (REF) | payer MEDICARE, OTHER ==
[~2019-06-11] MED LIST changes: +ACET-683 PO; +ALBU83IN INH; +BACT800T5 PO; +CEFD300CAP PO; +MELA10CA PO; +METF-723 PO; +PHEN-501 PO
[2019-06-11 14:06] LABS: APPEARANCE, URINE CLEAR (CLEAR); BACTERIA, URINE AUTO NEGATIVE (NEGATIVE); BILIRUBIN, URINE AUTO NEGATIVE (NEGATIVE); BLOOD, URINE BLOOD 3+ (NEGATIVE); COLOR, URINE YELLOW (YELLOW); GLUCOSE, URINE (UA) AUTO NEGATIVE (NEGATIVE); KETONE, URINE AUTO NEGATIVE (NEGATIVE); LEUKOCYTE ESTERASE, URINE AUTO 1+ (NEGATIVE); MUCUS, URINE SMALL (NEGATIVE); NITRITE, URINE AUTO NEGATIVE (NEGATIVE); PROTEIN, URINE AUTO 1+ mg/dL (NEGATIVE); RBC, URINE AUTO 140 /HPF (0-3); SPECIFIC GRAVITY URINE AUTO 1.019 (1.002-1.035); SQUAMOUS EPITHELIAL CELL UR AU 0 /HPF (0-6); UROBILINOGEN, URINE AUTO 0.2 mg/dL (0.0-2.0); WBC, URINE AUTO 22 /HPF (0-3)
== END ==
LOC: M LAB REF 13:17
PROVIDERS: ATTEND Internal Medicine
DX: N20.0 Calculus of kidney (principal); Z01.818 Encounter for other preprocedural examination

== ENCOUNTER 2019-06-19 06:00 | Day surgery (SDC) | payer MEDICARE, BC, OTHER ==
[~2019-06-19] VITALS: Ht 162.6 cm; Wt 110.7 kg
[~2019-06-19 06:00] MED LIST changes: +CIPROFLOXACIN 400 MG in IV 1 EA IV ONE; +LIDOCAINE 1% MDV 20ML VIAL SQ PRN; +LR 1,000 ML IV ONE
[2019-06-19] MEDS ORDERED: MIDAZOLAM INJ 2 MG/2 ML VIAL (J2250) As Ordered ONE (06:33)
[2019-06-19] MEDS ORDERED: dexameTHASONE 4 MG/ML 1ML VIAL (J1100) As Ordered ONE (06:34)
[2019-06-19] MEDS ORDERED: ONDANSETRON 4MG/2ML VIAL (J2405) As Ordered ONE (06:34)
[2019-06-19] MEDS ORDERED: propofoL 200 MG/20 ML VIAL As Ordered ONE (06:34)
[2019-06-19] MEDS ORDERED: fentaNYL 100 MCG/2 ML INJECTION (J3010) As Ordered ONE (06:34)
[2019-06-19] MEDS ORDERED: LIDOCAINE 2% INJ 100 MG/5 ML SDV (FOR ANES.) As Ordered ONE (06:35)
[2019-06-19] MEDS ORDERED: CONRAY-60 60% 50ML VIAL (Q9961) As Ordered ONE (07:08)
--- NOTE | 2019-06-19 09:50 | REP ---
Retrograde pyelogram: Three views. History: Stent placement. 12 seconds of fluoroscopy time is reported. Findings: A sequence of three last image hold fluoroscopically obtained at spot radiographs of the abdomen document left ureteral cannulation, contrast injection, and stent placement. Electronically Signed by Micah Lowe MD 06/19/2019 09:41 A
[2019-06-19] MEDS ORDERED: fentaNYL 100 MCG/2 ML INJECTION (J3010) IV PRN (10:00)
[2019-06-19] MEDS ORDERED: oxyBUTYnin 5 MG TAB PO PRN (10:00)
[2019-06-19] MEDS ORDERED: PERCOCET 5MG/325MG TAB PO PRN (10:00)
[2019-06-19] MEDS ORDERED: ONDANSETRON 4MG/2ML VIAL (J2405) IV PRN (10:00)
[2019-06-19] MEDS ORDERED: LR 1,000 ML IV SCH (10:00)
[2019-06-19 11:30] VITALS: BP 154/74
--- NOTE | 2019-06-19 12:21 | RO ---
DATE OF PROCEDURE: 06/19/2019 PREPROCEDURE DIAGNOSIS: Left kidney and ureteral stones. POSTPROCEDURE DIAGNOSIS: Left kidney and ureteral stones. PROCEDURE: Cystoscopy, left ureteroscopy with laser lithotripsy and basket extraction of stones, left retrograde pyelogram with intraoperative interpretation of images, left ureteral stent exchange. SURGEON: Dr. Adán Maldonado BOARDING HOUSE MANAGER: None. ANESTHESIA: General. OPERATIVE INDICATIONS: This is a 63-year-old male who was brought to the operating room approximately one month ago for cystoscopy and left ureteral stent placement for an obstructing distal 8 mm left ureteral stone. He also has several stones inside his kidney. He brought to the operating room today to clear out his stones. DESCRIPTION OF PROCEDURE: The patient was brought to the operating room where general anesthesia was induced. Prophylactic antibiotics were infused. He was then placed in dorsal lithotomy position and prepped and draped in the usual sterile fashion. A rigid cystoscope was inserted into the urethral meatus and advanced to the bladder. At this point, the previously placed left ureteral stent was grasped. It was then withdrawn until the distal end was seen protruding through the urethral meatus. At this point, a guidewire was advanced up the left ureteral stent. Once that was done, the stent was completely removed, leaving the wire in place. Once that was done, I went up the left collecting system with a short semirigid ureteroscope. Within the distal ureter, the 8 mm stone was seen. The stone was fragmented into smaller pieces using a 200 micron laser fiber. Then the fragments were removed using a basket. I then advanced the ureteral access sheath up the left collecting system. I went up the access sheath with the flexible ureteroscope and within the left kidney there were several stones seen measuring up to 1 cm in size in both the upper and lower pole calyces. All these stones were fragmented into smaller pieces using a 200 micron laser fiber. All the larger fragments were removed using a basket. Once done, only tiny stones and debris remained. At this point, a retrograde pyelogram was performed notable for moderate left hydronephrosis with no extravasation. I then withdrew the ureteroscope along with the access sheath and no additional stone was seen within the ureter. I then utilized the previously placed wire to advance the 7 Cambodian x 22-32 cm JJ ureteral stent up into the left collecting system. The wire was removed and there were adequate curls of the stent in the left renal pelvis and in the bladder. At this point, I emptied the bladder of all fluids and this marked the conclusion of the procedure. The patient was then taken out of the dorsal lithotomy position, awakened from anesthesia and transported to the recovery room in stable condition. Estimated blood loss: 5 mL. Complications: None. Specimen: Kidney stone fragments. Plan: The patient will followup in the clinic in a few weeks for stent removal. I will get a KUB prior to removing the stent to ensure all the stone fragments are gone.
== END 2019-06-19 11:36 | disposition home or self-care (01) ==
LOC: M SDC 06:00
PROVIDERS: ATTEND Urology
DX: N20.0 Calculus of kidney (principal); N20.1 Calculus of ureter; E78.5 Hyperlipidemia, unspecified; E11.9 Type 2 diabetes mellitus without complications; G47.30 Sleep apnea, unspecified; Z88.0 Allergy status to penicillin; Z88.8 Allergy status to other drugs, medicaments and biological substances; E03.9 Hypothyroidism, unspecified; Z87.891 Personal history of nicotine dependence; Z79.84 Long term (current) use of oral hypoglycemic drugs; Z79.899 Other long term (current) drug therapy
CPT/HCPCS: 52356; 74420; 82365; 88300; C1769; C1894; C2617; J0744; J1100; J2250; J2405; J3010; Q9961

== ENCOUNTER → 2019-07-22 | Outpatient (CLI) | payer MEDICARE, BC, OTHER ==
[~2019-07-22] MED LIST changes: -CIPROFLOXACIN 400 MG in IV 1 EA IV ONE; -LIDOCAINE 1% MDV 20ML VIAL SQ PRN; -LR 1,000 ML IV ONE
--- NOTE | 2019-07-22 14:20 | REPPI ---
Supine abdomen, single AP view: Comparison is the abdomen/pelvis CT dated 05/16/2019. There is a left ureteral stent with the proximal and distal pigtails in satisfactory positions. The there is a 5 x 2 mm density in the abdomen on the left, nonspecific, renal calculus versus bowel lumen artifact. No renal or ureteral or bladder calculi are identified otherwise . There is lumbar scoliosis convex right and degenerative disc disease throughout the lumbar spine. Electronically Signed by Levi Ervin MD 07/22/2019 02:12 P
== END ==
LOC: M PLAIMG 13:31
PROVIDERS: ATTEND Urology
DX: N20.0 Calculus of kidney (principal); M51.36 Other intervertebral disc degeneration, lumbar region

== ENCOUNTER → 2020-01-27 | Outpatient (REF) | payer MEDICARE, BC, OTHER ==
[2020-01-29 04:07] LABS: LDL DIRECT 91 mg/dL (0-99)
== END ==
LOC: M LAB REF 16:32
PROVIDERS: ATTEND Internal Medicine
DX: E78.5 Hyperlipidemia, unspecified (principal)

== ENCOUNTER → 2020-05-12 | Outpatient (REF) | payer MEDICARE, OTHER | LOC: M LAB REF 16:08 | PROVIDERS: ATTEND Nurse Practitioner Adult Health | DX: K11.7 Disturbances of salivary secretion (principal) ==

== ENCOUNTER → 2020-10-27 | Outpatient (CLI) | payer MEDICARE, BC, OTHER ==
[~2020-10-27] MED LIST changes: +BACTDSTA PO; -SULF1TAB93 PO
--- NOTE | 2020-10-27 13:39 | REP ---
INDICATION: COUGH. COMPARISON: Multiple the latest 09/07/2020 a portable exam TECHNIQUE: PA and lateral FINDINGS: The cardiomediastinal silhouette is within normal limits. The heart is not enlarged. A single nodule is seen in each lung base. These were not identified on all priors. The lung sawyer are otherwise clear. The pleural angles are sharp. The osseous structures are stable. IMPRESSION: Probable bilateral nipple shadow, however, not present on prior exams. Repeat PA views of the chest with nipple markers in place one view of the patient's arms up and the other view with the patient's arms down are recommended. <Electronically signed by Daron Redd > 10/27/20 [id number]
== END ==
LOC: M WUC 12:03
PROVIDERS: ATTEND Nurse Practitioner Adult Health
DX: R91.8 Other nonspecific abnormal finding of lung field (principal)

== ENCOUNTER 2020-11-19 15:01 | Emergency (ER) | payer MEDICARE, BC, OTHER ==
[~2020-11-19] VITALS: Ht 165.1 cm; Wt 118.4 kg
[2020-11-19] MEDS ORDERED: AMLO1TAB25 PO (15:54)
[2020-11-19] MEDS ORDERED: METO1TAB32 PO (15:54)
[2020-11-19] MEDS ORDERED: ISOS1TAB35 PO (15:54)
[2020-11-19 16:23] LABS: BASO % 0.5 % (0.0-1.0); EOS # 0.1 10^3/uL (0.0-0.5); EOS % 1.7 % (0.0-3.0); HEMOGLOBIN 13.3 g/dl (13.5-17.5); LYMPH # 1.4 10^3/uL (1.5-5.0); LYMPH % 21.6 % (24.0-44.0); MEAN CORPUSCULAR HEMOGLOBIN 30.9 pg (27.0-33.0); MEAN CORPUSCULAR HGB CONC 31.7 g/dl (32.0-36.5); MEAN CORPUSCULAR VOLUME 97.7 fl (80.0-96.0); MONO # 0.5 10^3/uL (0.0-0.8); NEUTROPHILS # 4.5 10^3/uL (1.5-8.5); NEUTROPHILS % 68.6 % (36.0-66.0); PLATELET COUNT, AUTOMATED 168 10^3/uL (150-450); WHITE BLOOD COUNT 6.5 10^3/uL (4.0-10.0)
[2020-11-19 16:47] LABS: ALBUMIN 3.9 GM/DL (3.2-5.2); BILIRUBIN,DIRECT 0.1 MG/DL (0.0-0.2); BILIRUBIN,TOTAL 0.6 MG/DL (0.2-1.0); TOTAL PROTEIN 7.6 GM/DL (6.4-8.2)
[2020-11-19] MEDS ORDERED: KETOROLAC 30 MG/ML 1ML VIAL IV ONE (17:30)
--- NOTE | 2020-11-19 18:16 | REPVR ---
PROCEDURE INFORMATION: Exam: CT Abdomen And Pelvis Without Contrast Exam date and time: 11/19/2020 5:31 PM Age: 65 years old Clinical indication: Abdominal pain; Additional info: Flank pain TECHNIQUE: Imaging protocol: Computed tomography of the abdomen and pelvis without contrast. Radiation optimization: All CT scans at this facility use at least one of these dose optimization techniques: automated exposure control; mA and/or kV adjustment per patient size (includes targeted exams where dose is matched to clinical indication); or iterative reconstruction. COMPARISON: CT ABD PELVIS W/O CONTRAST 05/16/2019 3:52 PM FINDINGS: Liver: Normal. No mass. Gallbladder and bile ducts: There has been a cholecystectomy. Pancreas: Rounded foci demonstrated along the anterior pancreatic margin involving the pancreatic body and tail measuring up to 1.3 cm. Findings may represent intrapancreatic mucinous neoplasms versus solid foci although evaluation is limited on this unenhanced scan. Further evaluation with pre and post-contrast MRI suggested if clinically desired. Spleen: Normal. No splenomegaly. Adrenal glands: Normal. No mass. Kidneys and ureters: Bilateral simple renal cysts including a large lobular cyst in the left kidney measuring 8.7 cm, stable in appearance. Nonobstructive left renal calculi demonstrated. No obstructive urinary tract calculi demonstrated. Stomach and bowel: Mild diverticulosis is present in the left colon. No diverticulitis. Ahaustral appearance of the distal left colon with mural stratification, a finding not demonstrated previously. Although possibly related to nondistention changes secondary to colitis, subacute or chronic not excluded. No abscess demonstrated. Appendix: No evidence of appendicitis. Intraperitoneal space: Unremarkable. No free air. No significant fluid collection. Vasculature: The aortoiliac vessels demonstrate mild atherosclerotic calcification. Lymph nodes: Unremarkable. No enlarged lymph nodes. Urinary bladder: Unremarkable as visualized. Reproductive: The prostate gland demonstrates mild hyperplasia. Bones/joints: Status post posterior interbody fusion of the lumbar spine from L3 to L5 using transpedicular screws and metallic rods. Status post L4 and L5 laminectomies. Shallow scoliosis. Soft tissues: Increased density demonstrated within a right inguinal hernia. Clinical correlation to exclude incarceration suggested. IMPRESSION: 1. There has been a cholecystectomy. 2. Rounded foci demonstrated along the anterior pancreatic margin involving the pancreatic body and tail measuring up to 1.3 cm. Findings may represent intrapancreatic mucinous neoplasms versus solid foci although evaluation is limited as noted above. Further evaluation with pre and post-contrast MRI suggested if clinically desired. 3. Bilateral simple renal cysts stable in appearance. 4. Nonobstructive left renal calculi demonstrated. No obstructive urinary tract calculi demonstrated. 5. Mild prostatic hyperplasia. 6. Mild diverticulosis is present in the left colon. No diverticulitis. 7. Ahaustral appearance of the distal left colon with mural stratification, a finding not demonstrated previously. Although possibly related to nondistention changes secondary to colitis, subacute or chronic not excluded. No abscess demonstrated. 8. Increased density demonstrated within a right inguinal hernia. Clinical correlation to exclude incarceration suggested. Electronically signed by: hCauncey Ledezma On 11/19/2020 18:15:54 PM
[2020-11-19 19:01] VITALS: BP 153/83
--- NOTE | 2020-11-20 08:00 | ED PDOC ---
Post-Departure Follow-Up radiology report faxed to Chiquita Connell MD Nov 20, 2020 07:59
== END 2020-11-19 19:03 | disposition home or self-care (01) ==
LOC: M ED 15:01
DX: S39.012A Strain of muscle, fascia and tendon of lower back, initial encounter (principal); X58.XXXA Exposure to other specified factors, initial encounter; Y92.89 Other specified places as the place of occurrence of the external cause; E11.9 Type 2 diabetes mellitus without complications; I10 Essential (primary) hypertension; J44.9 Chronic obstructive pulmonary disease, unspecified; E78.5 Hyperlipidemia, unspecified; E03.9 Hypothyroidism, unspecified; Z98.1 Arthrodesis status; Z88.0 Allergy status to penicillin; Z88.8 Allergy status to other drugs, medicaments and biological substances
CPT/HCPCS: 36415; 74176; 80047; 80076; 81001; 83690; 85025; 99284; J1885

== ENCOUNTER → 2020-12-04 | Outpatient (CLI) | payer MEDICARE, BC, OTHER ==
[~2020-12-04] MED LIST changes: +AMLO1TAB25 PO; +ISOS1TAB35 PO; +METO1TAB32 PO
--- NOTE | 2020-12-04 11:05 | REP ---
INDICATION: ABN IMAG ? PANCREATIC MASS. COMPARISON: CT 11/19/2020. TECHNIQUE: Multiple sequences obtained in the axial coronal planes prior to and following the intravenous administration of 20 mL ProHance. FINDINGS: The visualized liver demonstrates no abnormality. The patient has had a prior cholecystectomy. There is no significant biliary dilatation. The spleen and adrenals are unremarkable. In the body of the pancreas just to the left of midline there is a cyst which measures approximately 9 mm in diameter. This does not demonstrate evidence of enhancement. No other pancreatic abnormality is seen. There is no pancreatic duct dilatation. There is a benign nonenhancing cyst in the mid right kidney posteriorly measuring approximately 2 cm in diameter. There is a lobulated dominant cyst of the mid to upper left kidney which demonstrates no significant internal enhancement, measuring approximately 8.9 cm in maximum diameter. Another nonenhancing benign cyst is seen in the left lower pole measuring approximately 4.2 cm in diameter. There is no adenopathy or free fluid. IMPRESSION: In the body of the pancreas there is a nonenhancing cyst 9 mm in diameter. Recommend follow-up MRI in 1 year. Bilateral benign renal cysts. <Electronically signed by Levi Abbott > 12/04/20 1101
== END ==
LOC: M PLARAD 09:10
PROVIDERS: ATTEND Internal Medicine
DX: D37.8 Neoplasm of uncertain behavior of other specified digestive organs (principal)

== ENCOUNTER → 2021-08-26 | Outpatient (CLI) | payer MEDICARE, BC, OTHER ==
[~2021-08-26] MED LIST changes: +HYDR-3713 PO; +INDO50CA91 PO; +JARD1TAB
== END ==
LOC: M RAD 08:54
PROVIDERS: ATTEND Nurse Practitioner Adult Health
DX: Z12.2 Encounter for screening for malignant neoplasm of respiratory organs (principal); Z87.891 Personal history of nicotine dependence

== ENCOUNTER 2021-08-31 07:38 | Emergency (ER) | payer MEDICARE, BC, OTHER ==
[~2021-08-31] VITALS: Ht 170.2 cm; Wt 116.0 kg
[~2021-08-31 07:38] MED LIST changes: -HYDR-3713 PO; -INDO50CA91 PO; -JARD1TAB
[2021-08-31] MEDS ORDERED: JARD1TAB (07:58)
[2021-08-31] MEDS ORDERED: NORCO, ANEXSIA 5/325MG TABLET (HYDROcodone/ACETAMINOPHEN) PO ONE (08:55)
[2021-08-31 09:26] LABS: BASO % 0.2 % (0.0-1.0); EOS # 0.1 10^3/uL (0.0-0.5); EOS % 0.8 % (0.0-3.0); HEMATOCRIT 44.3 % (42.0-52.0); HEMOGLOBIN 14.1 g/dl (13.5-17.5); LYMPH # 0.6 10^3/uL (1.5-5.0); LYMPH % 6.5 % (24.0-44.0); MEAN CORPUSCULAR HEMOGLOBIN 31.8 pg (27.0-33.0); MEAN CORPUSCULAR HGB CONC 31.8 g/dl (32.0-36.5); MEAN CORPUSCULAR VOLUME 99.8 fl (80.0-96.0); MONO # 0.8 10^3/uL (0.0-0.8); MONO % 8.6 % (2.0-8.0); NEUTROPHILS # 7.6 10^3/uL (1.5-8.5); NEUTROPHILS % 83.3 % (36.0-66.0); PLATELET COUNT, AUTOMATED 138 10^3/uL (150-450); RED BLOOD COUNT 4.44 10^6/uL (4.30-6.10); WHITE BLOOD COUNT 9.1 10^3/uL (4.0-10.0)
[2021-08-31 09:38] LABS: BLOOD UREA NITROGEN 16 MG/DL (7-18); CALCIUM LEVEL 8.9 MG/DL (8.8-10.2); CARBON DIOXIDE LEVEL 20 MEQ/L (21-32); CHLORIDE LEVEL 111 MEQ/L (98-107); CREATININE FOR GFR 0.92 MG/DL (0.70-1.30); GLOMERULAR FILTRATION RATE > 60.0 (>49); GLUCOSE, FASTING 218 MG/DL (70-100); POTASSIUM SERUM 4.2 MEQ/L (3.5-5.1); SODIUM LEVEL 139 MEQ/L (136-145); URIC ACID 4.1 MG/DL (3.5-7.2)
[2021-08-31 10:00] LABS: ERYTHROCYTE SEDIMENTATION RATE 12 mm/hr (0-20)
[2021-08-31 10:27] VITALS: BP 141/76
[2021-08-31] MEDS ORDERED: HYDR-3713 PO (10:29)
[2021-08-31] MEDS ORDERED: INDO50CA91 PO (10:29)
== END 2021-08-31 10:39 | disposition home or self-care (01) ==
LOC: M ED 07:38
DX: M02.331 Reiter's disease, right wrist (principal); E11.9 Type 2 diabetes mellitus without complications; E03.9 Hypothyroidism, unspecified; E78.00 Pure hypercholesterolemia, unspecified; G47.33 Obstructive sleep apnea (adult) (pediatric); Z87.442 Personal history of urinary calculi; M43.26 Fusion of spine, lumbar region; Z96.0 Presence of urogenital implants; Z99.89 Dependence on other enabling machines and devices; Z79.899 Other long term (current) drug therapy; Z79.890 Hormone replacement therapy; Z79.84 Long term (current) use of oral hypoglycemic drugs; Z87.891 Personal history of nicotine dependence; Z88.0 Allergy status to penicillin; Z88.8 Allergy status to other drugs, medicaments and biological substances

== ENCOUNTER → 2021-09-22 | Outpatient (REF) | payer MEDICARE, BC, OTHER ==
[~2021-09-22] MED LIST changes: +HYDR-3713 PO; +INDO50CA91 PO; +JARD1TAB
== END ==
LOC: M LAB REF 12:37
PROVIDERS: ATTEND Internal Medicine
DX: E11.65 Type 2 diabetes mellitus with hyperglycemia (principal); M13.131 Monoarthritis, not elsewhere classified, right wrist

== ENCOUNTER 2022-03-08 10:47 | Emergency (ER) | payer MEDICARE, BC, OTHER ==
[~2022-03-08] VITALS: Ht 167.6 cm; Wt 111.8 kg
[~2022-03-08 10:47] MED LIST changes: +ALBU2.5V10 INH; +ALBU2.5V10 NEB; -ALBU83IN INH; -ALBU83IN NEB
[2022-03-08] MEDS ORDERED: METF-838 (11:03)
[2022-03-08] MEDS ORDERED: SEMA1PEN2 (11:03)
[2022-03-08] MEDS ORDERED: ADENOSINE 6MG/2ML INJECTION (J0153) As Ordered ONE (11:05)
[2022-03-08] MEDS ORDERED: NS 500 ML IV ONE (11:15)
[2022-03-08] MEDS ORDERED: ADENOSINE 6MG/2ML INJECTION (J0153) IV STA (11:30)
[2022-03-08 11:38] LABS: INR 0.77; PARTIAL THROMBOPLASTIN TIME 26.7 SECONDS (24.8-34.2); PROTHROMBIN TIME 10.9 SECONDS (12.5-14.5)
[2022-03-08 11:42] LABS: BASO % 0.4 % (0.0-1.0); EOS # 0.2 10^3/uL (0.0-0.5); EOS % 1.6 % (0.0-3.0); HEMATOCRIT 48.7 % (42.0-52.0); HEMOGLOBIN 15.7 g/dl (13.5-17.5); LYMPH # 1.8 10^3/uL (1.5-5.0); LYMPH % 17.2 % (24.0-44.0); MEAN CORPUSCULAR HGB CONC 32.2 g/dl (32.0-36.5); MEAN CORPUSCULAR VOLUME 99.2 fl (80.0-96.0); MONO # 0.9 10^3/uL (0.0-0.8); MONO % 8.2 % (2.0-8.0); NEUTROPHILS # 7.7 10^3/uL (1.5-8.5); NEUTROPHILS % 71.9 % (36.0-66.0); PLATELET COUNT, AUTOMATED 175 10^3/uL (150-450); RED BLOOD COUNT 4.91 10^6/uL (4.30-6.10); WHITE BLOOD COUNT 10.7 10^3/uL (4.0-10.0)
[2022-03-08 12:09] LABS: ALBUMIN 3.7 GM/DL (3.2-5.2); ALT/SGPT 24 U/L (12-78); BILIRUBIN,DIRECT 0.1 MG/DL (0.0-0.2); BILIRUBIN,TOTAL 0.6 MG/DL (0.2-1.0); BLOOD UREA NITROGEN 13 MG/DL (7-18); CALCIUM LEVEL 9.2 MG/DL (8.8-10.2); CARBON DIOXIDE LEVEL 22 MEQ/L (21-32); CHLORIDE LEVEL 107 MEQ/L (98-107); FREE T4 0.79 NG/DL (0.76-1.46); GLOMERULAR FILTRATION RATE > 60.0 (>49); GLUCOSE, FASTING 151 MG/DL (70-100); LIPASE 116 U/L (73-393); NT-PRO BNP 294 PG/ML (<125); POTASSIUM SERUM 4.1 MEQ/L (3.5-5.1); SODIUM LEVEL 138 MEQ/L (136-145); TOTAL PROTEIN 7.6 GM/DL (6.4-8.2)
[2022-03-08] MEDS ORDERED: ASPIRIN 81 MG CHEW TABLET PO ONE (12:10)
[2022-03-08 12:17] LABS: CK-MB VALUE MASS 2.1 NG/ML (<3.6); MB/CK RELATIVE INDEX 2.47 (< OR =4)
[2022-03-08] MEDS ORDERED: ISOVUE-370 76% 100ML VIAL As Ordered ONE (12:21)
[2022-03-08 13:42] LABS: CK-MB VALUE MASS 1.6 NG/ML (<3.6); MB/CK RELATIVE INDEX 1.22 (< OR =4)
[2022-03-08 15:16] LABS: RSV AMPLIFICATION NEGATIVE (NEGATIVE)
[2022-03-08 15:21] LABS: CK-MB VALUE MASS 1.8 NG/ML (<3.6); MB/CK RELATIVE INDEX 2.69 (< OR =4)
[2022-03-08 15:45] VITALS: BP 152/81
== END 2022-03-08 16:13 | disposition home or self-care (01) ==
LOC: M ED 10:47
DX: I47.1 Supraventricular tachycardia (principal); R07.9 Chest pain, unspecified; E11.9 Type 2 diabetes mellitus without complications; J44.9 Chronic obstructive pulmonary disease, unspecified; I10 Essential (primary) hypertension; F17.200 Nicotine dependence, unspecified, uncomplicated; Z79.899 Other long term (current) drug therapy; Z79.84 Long term (current) use of oral hypoglycemic drugs; Z79.890 Hormone replacement therapy; Z88.0 Allergy status to penicillin; Z88.8 Allergy status to other drugs, medicaments and biological substances
CPT/HCPCS: 71045; 71275; 80047; 80048; 80076; 82550; 82553; 83690; 83880; 84439; 84443; 84484; 85025; 85610; 85730; 87631; 93005; 93041; 94760; 96361; 96374; 99285; J0153; Q9967

== ENCOUNTER → 2022-08-26 | Outpatient (CLI) | payer MEDICARE, BC, OTHER ==
[~2022-08-26] MED LIST changes: +METF-838; +SEMA1PEN2
== END ==
LOC: M WUC 15:31
PROVIDERS: ATTEND Nurse Practitioner Family
DX: R06.2 Wheezing (principal)

== ENCOUNTER → 2022-08-26 | Outpatient (REF) | payer MEDICARE, OTHER | LOC: M LAB REF 16:28 | PROVIDERS: ATTEND Nurse Practitioner Family | DX: R06.2 Wheezing (principal) ==

== ENCOUNTER 2022-09-08 15:35 | Emergency (ER) | payer MEDICARE, OTHER ==
[~2022-09-08] VITALS: Ht 167.6 cm; Wt 106.6 kg
[~2022-09-08 15:35] MED LIST changes: +ARNU1INH; -JARD1TAB; +JARD1TAB PO; +LEVO25CA PO; +LOSA25TA13 PO; +MELO15TA28 PO; -METF-838; +METF-838 PO; +METO1TAB87 PO; +OZEM2INJ
[2022-09-08 16:07] LABS: BASO # 0.1 10^3/uL (0.0-0.2); BASO % 0.5 % (0.0-1.0); EOS # 0.1 10^3/uL (0.0-0.5); EOS % 1.1 % (0.0-3.0); HEMATOCRIT 47.1 % (42.0-52.0); HEMOGLOBIN 15.8 g/dl (13.5-17.5); LYMPH # 1.5 10^3/uL (1.5-5.0); LYMPH % 15.3 % (24.0-44.0); MEAN CORPUSCULAR HEMOGLOBIN 32.4 pg (27.0-33.0); MEAN CORPUSCULAR HGB CONC 33.5 g/dl (32.0-36.5); MEAN CORPUSCULAR VOLUME 96.7 fl (80.0-96.0); MONO # 0.8 10^3/uL (0.0-0.8); MONO % 7.7 % (2.0-8.0); NEUTROPHILS # 7.3 10^3/uL (1.5-8.5); NEUTROPHILS % 74.9 % (36.0-66.0); PLATELET COUNT, AUTOMATED 134 10^3/uL (150-450); RED BLOOD COUNT 4.87 10^6/uL (4.30-6.10); WHITE BLOOD COUNT 9.8 10^3/uL (4.0-10.0)
[2022-09-08 16:15] LABS: INR 0.85; PROTHROMBIN TIME 11.8 SECONDS (12.5-14.5)
[2022-09-08 16:16] LABS: PARTIAL THROMBOPLASTIN TIME 25.7 SECONDS (24.8-34.2)
[2022-09-08 16:31] LABS: BLOOD UREA NITROGEN 19 MG/DL (9-23); CALCIUM LEVEL 8.8 MG/DL (8.3-10.6); CARBON DIOXIDE LEVEL 23 MMOL/L (20-31); CHLORIDE LEVEL 105 MMOL/L (98-107); CK-MB VALUE MASS < 1.0 NG/ML (<3.6); GLOMERULAR FILTRATION RATE > 60.0 (>49); GLUCOSE, FASTING 135 MG/DL (74-106); MAGNESIUM LEVEL 1.6 MG/DL (1.8-2.4); POTASSIUM SERUM 4.2 MMOL/L (3.5-5.1); SODIUM LEVEL 138 MMOL/L (136-145)
[2022-09-08 16:33] LABS: FREE T4 0.91 NG/DL (0.89-1.76); THYROID STIMULATING HORMONE 6.179 uIU/ML (0.55-4.78)
[2022-09-08 16:34] LABS: CPK CREATINE PHOSPHOKINASE 42 U/L (46-171); MB/CK RELATIVE INDEX 2.38 (< OR =4)
[2022-09-08] MEDS ORDERED: MAG SULF 1GM/100ML (MAG RUN) 1 GM in IV 1 EA IV ONE (16:35)
[2022-09-08 17:33] LABS: CK-MB VALUE MASS < 1.0 NG/ML (<3.6)
[2022-09-08 17:48] LABS: CPK CREATINE PHOSPHOKINASE 39 U/L (46-171); MB/CK RELATIVE INDEX 2.56 (< OR =4)
[2022-09-08 19:31] VITALS: BP 140/87
== END 2022-09-08 19:55 | disposition home or self-care (01) ==
LOC: M ED 15:35 → EDBD 15:35 → M ED 19:55
DX: I47.1 Supraventricular tachycardia (principal); E11.9 Type 2 diabetes mellitus without complications; J45.909 Unspecified asthma, uncomplicated; E03.9 Hypothyroidism, unspecified; Z87.442 Personal history of urinary calculi; Z88.0 Allergy status to penicillin; Z88.8 Allergy status to other drugs, medicaments and biological substances; Z79.899 Other long term (current) drug therapy; Z79.84 Long term (current) use of oral hypoglycemic drugs
CPT/HCPCS: 71045; 80048; 82550; 82553; 83735; 84439; 84443; 84484; 85025; 85610; 85730; 93005; 93041; 94760; 96365; 99285; J3475

== ENCOUNTER 2022-10-03 12:33 | Emergency (ER) | payer MEDICARE, BC, OTHER ==
[~2022-10-03] VITALS: Ht 170.2 cm; Wt 102.3 kg
[2022-10-03 12:44] VITALS: BP 189/79
[2022-10-03] MEDS ORDERED: LEVO200T4 (13:02)
[2022-10-03] MEDS ORDERED: METO1TAB87 (13:02)
[2022-10-03] MEDS ORDERED: TRAM50TA2 PO (14:29)
== END 2022-10-03 14:49 | disposition home or self-care (01) ==
LOC: M ED 12:33
DX: S50.02XA Contusion of left elbow, initial encounter (principal); S46.911A Strain of unspecified muscle, fascia and tendon at shoulder and upper arm level, right arm, initial encounter; S46.912A Strain of unspecified muscle, fascia and tendon at shoulder and upper arm level, left arm, initial encounter; S93.402A Sprain of unspecified ligament of left ankle, initial encounter; W10.8XXA Fall (on) (from) other stairs and steps, initial encounter; E11.9 Type 2 diabetes mellitus without complications; J45.909 Unspecified asthma, uncomplicated; I47.1 Supraventricular tachycardia; Z88.0 Allergy status to penicillin; Z88.8 Allergy status to other drugs, medicaments and biological substances; Z79.899 Other long term (current) drug therapy; Z79.84 Long term (current) use of oral hypoglycemic drugs

== ENCOUNTER → 2023-06-22 | Outpatient (REF) | payer MEDICARE, BC, OTHER ==
[~2023-06-22] MED LIST changes: +LEVO200T4; +METO1TAB87; +TRAM50TA2 PO
[2023-06-22 17:55] LABS: APPEARANCE, URINE CLEAR (CLEAR); BACTERIA, URINE AUTO NEGATIVE (NEGATIVE); BILIRUBIN, URINE AUTO NEGATIVE (NEGATIVE); BLOOD, URINE BLOOD NEGATIVE (NEGATIVE); COLOR, URINE YELLOW (YELLOW); GLUCOSE, URINE (UA) AUTO 3+ mg/dL (NEGATIVE); KETONE, URINE AUTO NEGATIVE (NEGATIVE); LEUKOCYTE ESTERASE, URINE AUTO NEGATIVE (NEGATIVE); MUCUS, URINE SMALL (NEGATIVE); NITRITE, URINE AUTO NEGATIVE (NEGATIVE); PROTEIN, URINE AUTO NEGATIVE (NEGATIVE); RBC, URINE AUTO 0 /HPF (0-3); SPECIFIC GRAVITY URINE AUTO 1.026 (1.002-1.035); SQUAMOUS EPITHELIAL CELL UR AU 1 /HPF (0-6); UROBILINOGEN, URINE AUTO 0.2 mg/dL (0.0-2.0); WBC, URINE AUTO 1 /HPF (0-3)
[2023-06-22 17:58] LABS: PARTIAL THROMBOPLASTIN TIME 27.5 SECONDS (24.8-34.2)
[2023-06-22 18:21] LABS: INR 1.01
== END ==
LOC: M LAB REF 16:22
PROVIDERS: ATTEND Internal Medicine
DX: Z01.818 Encounter for other preprocedural examination (principal); Z79.01 Long term (current) use of anticoagulants; Z79.899 Other long term (current) drug therapy

== ENCOUNTER 2024-05-23 07:32 | Day surgery (SDC) | payer MEDICARE, BC ==
[~2024-05-23] VITALS: Ht 160 cm; Wt 106.0 kg
[~2024-05-23 07:32] MED LIST changes: -ARNU1INH; +ARNU1INH INH; +LIDOCAINE 2% 100MG/5ML SDV (FOR ANES.) As Ordered ONE; +LOSA50TA28 PO; +MELO7.5T35 PO; -METO1TAB87; +SEMA2PEN SQ; +propofoL 200 MG/20 ML VIAL As Ordered ONE
[2024-05-23 09:02] VITALS: TEMP 97
[2024-05-23 09:22] VITALS: BP 137/61; O2SAT 97
== END 2024-05-23 09:37 | disposition home or self-care (01) ==
LOC: M OPP 07:32
PROVIDERS: ATTEND Surgery
DX: K57.30 Diverticulosis of large intestine without perforation or abscess without bleeding (principal); Z86.0100 Personal history of colon polyps, unspecified; G47.30 Sleep apnea, unspecified; Z88.0 Allergy status to penicillin; Z88.8 Allergy status to other drugs, medicaments and biological substances; Z79.84 Long term (current) use of oral hypoglycemic drugs; Z79.85 Long-term (current) use of injectable non-insulin antidiabetic drugs; Z79.899 Other long term (current) drug therapy

== ENCOUNTER → 2024-08-28 | Outpatient (REF) | payer MEDICARE, BC, OTHER ==
[~2024-08-28] MED LIST changes: -LIDOCAINE 2% 100MG/5ML SDV (FOR ANES.) As Ordered ONE; -propofoL 200 MG/20 ML VIAL As Ordered ONE
[2024-08-28 19:31] LABS: FOLATE 13.7 NG/ML (>5.4)
[2024-08-29 09:22] LABS: FREE T3 2.6 PG/ML (2.3-4.2); TOTAL T3 80.6 NG/DL (60.0-181.0)
== END ==
LOC: M LAB REF 17:34
PROVIDERS: ATTEND Physician Assistant Medical
DX: R41.81 Age-related cognitive decline (principal); E03.9 Hypothyroidism, unspecified

== ENCOUNTER 2024-09-08 12:57 | Emergency (ER) | payer MEDICARE, BC, OTHER ==
[~2024-09-08] VITALS: Ht 170.2 cm; Wt 106.7 kg
[~2024-09-08 12:57] MED LIST changes: -LEVO25CA PO; +LEVO25CA2 PO
[2024-09-08] MEDS: FLUORESCEIN OPHTH 1MG STRIP OU ONE (13:40)
[2024-09-08] MEDS: PROPARACAINE 0.5% OPHTH SOL 15ML OU ONE (13:40)
[2024-09-08] MEDS ORDERED: ISOVUE-370 76% 100ML VIAL As Ordered ONE (14:17)
[2024-09-08 14:19] LABS: BASO % 0.6 % (0.0-1.0); EOS # 0.1 10^3/uL (0.0-0.5); EOS % 1.9 % (0.0-3.0); HEMATOCRIT 42.8 % (42.0-52.0); HEMOGLOBIN 14.3 g/dl (13.5-17.5); MEAN CORPUSCULAR HEMOGLOBIN 33.1 pg (27.0-33.0); MEAN CORPUSCULAR HGB CONC 33.4 g/dl (32.0-36.5); MEAN CORPUSCULAR VOLUME 99.1 fl (80.0-96.0); MONO # 0.5 10^3/uL (0.0-0.8); MONO % 9.5 % (2.0-8.0); NEUTROPHILS # 3.7 10^3/uL (1.5-8.5); NEUTROPHILS % 69.8 % (36.0-66.0); PLATELET COUNT, AUTOMATED 139 10^3/uL (150-450); RED BLOOD COUNT 4.32 10^6/uL (4.30-6.10); WHITE BLOOD COUNT 5.3 10^3/uL (4.0-10.0)
[2024-09-08 14:23] LABS: ERYTHROCYTE SEDIMENTATION RATE 9 mm/hr (0-20)
[2024-09-08 14:39] LABS: BLOOD UREA NITROGEN 14 MG/DL (9-23); C REACTIVE PROTEIN QUANTITATIV < 0.50 MG/DL (<1.0); CALCIUM LEVEL 9.1 MG/DL (8.3-10.6); CARBON DIOXIDE LEVEL 26 MMOL/L (20-31); CHLORIDE LEVEL 107 MMOL/L (98-107); CREATININE FOR GFR 0.81 MG/DL (0.70-1.30); GLOMERULAR FILTRATION RATE > 90.0 (>42); GLUCOSE, FASTING 92 MG/DL (74-106); POTASSIUM SERUM 4.2 MMOL/L (3.5-5.1); SODIUM LEVEL 141 MMOL/L (136-145)
[2024-09-08 15:05] LABS: INR 0.93; PARTIAL THROMBOPLASTIN TIME 26.6 SECONDS (24.8-34.2); PROTHROMBIN TIME 12.8 SECONDS (12.5-14.5)
[2024-09-08 17:00] VITALS: BP 211/96
[2024-09-08] MEDS: LOSARTAN 25 MG TAB PO ONE (17:00)
[2024-09-08] MEDS: NITROGLYCERIN 2% OINT 1 GM *U/D* PKT TOP ONE (18:20)
[2024-09-08 18:29] VITALS: BP 195/110; TEMP 97.5; O2SAT 99
== END 2024-09-08 18:31 | disposition short-term general hospital (02) ==
LOC: M ED 12:57
DX: I10 Essential (primary) hypertension (principal); H53.459 Other localized visual field defect, unspecified eye; E11.9 Type 2 diabetes mellitus without complications; E78.00 Pure hypercholesterolemia, unspecified; G47.33 Obstructive sleep apnea (adult) (pediatric); Z87.891 Personal history of nicotine dependence; Z79.4 Long term (current) use of insulin; Z79.899 Other long term (current) drug therapy; Z88.0 Allergy status to penicillin; Z88.8 Allergy status to other drugs, medicaments and biological substances
CPT/HCPCS: 70450; 70496; 70498; 80047; 80048; 85025; 85610; 85652; 85730; 86140; 99285; Q9967

== ENCOUNTER → 2025-04-03 | Outpatient (REF) | payer MEDICARE, BC ==
[~2025-04-03] MED LIST changes: -BACTDSTA PO; +METF-1201 PO; -METF-723 PO; +SULF-8 PO
[2025-04-03 13:31] LABS: VITAMIN B12 LEVEL 240.0 PG/ML (211-911)
== END ==
LOC: M LAB REF 12:26
PROVIDERS: ATTEND Internal Medicine
DX: D69.6 Thrombocytopenia, unspecified (principal)